=== PATIENT | male | born 1965 | race Caucasian/White ===

== ENCOUNTER → 2020-08-02 | Outpatient (CLI) | payer OTHER ==
[~2020-08-02] MED LIST: HYDACE5 PO; NAPR550 PO
== END | disposition home or self-care (01) ==
LOC: LAB EV 08:44 → LAB SHORT 08:44
DX: M10.9 Gout, unspecified (principal)
CPT/HCPCS: 84550

== ENCOUNTER 2022-06-06 00:43 | Day surgery (SDC) | payer OTHER, BC ==
[~2022-06-06 00:43] MED LIST changes: +ATENOLOL25 MG PO; +CUBICIN RF500 M1 IV
== END 2022-06-06 15:23 | disposition home or self-care (01) ==
LOC: ATC 00:43
DX: M86.9 Osteomyelitis, unspecified (principal)
CPT/HCPCS: J0878

== ENCOUNTER 2022-06-07 02:03 | Day surgery (SDC) | payer OTHER, BC | END 2022-06-07 11:37 | disposition home or self-care (01) | LOC: ATC 02:03 | DX: M86.9 Osteomyelitis, unspecified (principal) | CPT/HCPCS: J0878 ==

== ENCOUNTER 2022-06-08 00:12 | Day surgery (SDC) | payer OTHER, BC ==
[2022-06-08 14:58] LABS: BASOPHILS ABSOLUTE AUTO 0.07 K/mm3 (0.00-0.23); BASOPHILS PERCENT AUTO 1 % (0-2); EOSINOPHILS ABSOLUTE AUTO 0.34 K/mm3 (0.00-0.68); EOSINOPHILS PERCENT AUTO 4 % (0-6); Hematocrit 42.4 % (37.0-53.0); Hemoglobin 13.6 g/dL (13.5-17.5); IMMATURE GRAN ABSOLUTE AUTO 0.03 K/mm3 (0.00-0.10); IMMATURE GRAN PERCENT AUTO 0 % (0-1); LYMPHOCYTES ABSOLUTE AUTO 3.08 K/mm3 (0.84-5.20); LYMPHOCYTES PERCENT AUTO 34 % (21-46); MONOCYTES ABSOLUTE AUTO 0.73 K/mm3 (0.16-1.47); MONOCYTES PERCENT AUTO 8 % (4-13); Mean Corpuscular HGB 28.2 pg (26.0-34.0); Mean Corpuscular HGB Conc 32.1 g/dL (31.5-36.5); Mean Corpuscular Volume 88 fL (80-100); Mean Platelet Volume 10.2 fL (9.1-12.4); NEUTROPHILS ABSOLUTE AUTO 4.85 K/mm3 (1.96-9.15); NEUTROPHILS PERCENT AUTO 53 % (41-73); Platelet Count 432 K/mm3 (150-400); RDW Coefficient Variation 16.5 % (11.7-14.2); RDW Standard Deviation 53.7 fL (35.1-46.3); Red Blood Cell Count 4.82 M/mm3 (4.30-5.90)
[2022-06-08 15:37] LABS: C-REACTIVE PROTEIN, EXT RANGE 0.572 mg/dL (0.000-0.300)
[2022-06-08 15:39] LABS: Albumin, Blood 3.5 g/dL (3.4-5.0); Albumin/Globulin Ratio 0.8 (0.8-1.8); Bilirubin, Total 0.3 mg/dL (0.1-1.0); Bun/Creatinine Ratio 39.1 (12.0-20.0); Calcium, Blood 9.2 mg/dL (8.5-10.1); Creatinine, Blood 0.56 mg/dL (0.60-1.20); Globulin, Blood 4.6 g/dL (2.2-4.0); Potassium, Blood 4.2 mmol/L (3.5-5.5); Total Protein, Blood 8.1 g/dL (6.4-8.2)
== END 2022-06-08 15:15 | disposition home or self-care (01) ==
LOC: ATC 00:12
PROVIDERS: Internal Medicine
DX: M86.9 Osteomyelitis, unspecified (principal)
CPT/HCPCS: 80053; 82550; 85025; 86140; J0878

== ENCOUNTER 2022-06-09 01:13 | Day surgery (SDC) | payer OTHER, BC | END 2022-06-09 13:30 | disposition home or self-care (01) | LOC: ATC 01:13 | DX: M86.9 Osteomyelitis, unspecified (principal) | CPT/HCPCS: J0878 ==

== ENCOUNTER 2022-06-10 01:05 | Day surgery (SDC) | payer OTHER, BC | END 2022-06-10 13:30 | disposition home or self-care (01) | LOC: ATC 01:05 | DX: M86.9 Osteomyelitis, unspecified (principal) | CPT/HCPCS: J0878 ==

== ENCOUNTER 2022-06-11 01:10 | Day surgery (SDC) | payer OTHER, BC | END 2022-06-11 12:17 | disposition home or self-care (01) | LOC: ATC 01:10 | DX: M86.8X6 Other osteomyelitis, lower leg (principal) | CPT/HCPCS: 96365; J0878 ==

== ENCOUNTER 2022-07-26 02:17 | Day surgery (SDC) | payer BC | END 2022-07-26 22:43 | disposition home or self-care (01) | LOC: WOUND 02:17 | DX: T81.89XA Other complications of procedures, not elsewhere classified, initial encounter (principal); I25.10 Atherosclerotic heart disease of native coronary artery without angina pectoris; E11.21 Type 2 diabetes mellitus with diabetic nephropathy; I50.22 Chronic systolic (congestive) heart failure; E11.628 Type 2 diabetes mellitus with other skin complications | CPT/HCPCS: A9270; G0463 ==

== ENCOUNTER 2022-07-30 03:11 | Day surgery (SDC) | payer BC | END 2022-07-30 23:07 | disposition home or self-care (01) | LOC: WOUND 03:11 | DX: E11.628 Type 2 diabetes mellitus with other skin complications (principal); T81.89XD Other complications of procedures, not elsewhere classified, subsequent encounter; E11.21 Type 2 diabetes mellitus with diabetic nephropathy; I50.22 Chronic systolic (congestive) heart failure | CPT/HCPCS: G0463 ==

== ENCOUNTER 2022-08-01 05:24 | Day surgery (SDC) | payer BC | END 2022-08-01 23:03 | disposition home or self-care (01) | LOC: WOUND 05:24 | DX: T81.89XA Other complications of procedures, not elsewhere classified, initial encounter (principal); E11.622 Type 2 diabetes mellitus with other skin ulcer; L97.822 Non-pressure chronic ulcer of other part of left lower leg with fat layer exposed; E11.21 Type 2 diabetes mellitus with diabetic nephropathy; I50.22 Chronic systolic (congestive) heart failure; E11.628 Type 2 diabetes mellitus with other skin complications | CPT/HCPCS: G0463 ==

== ENCOUNTER 2022-08-03 01:59 | Day surgery (SDC) | payer BC | END 2022-08-03 23:48 | disposition home or self-care (01) | LOC: WOUND 01:59 | DX: E11.622 Type 2 diabetes mellitus with other skin ulcer (principal); L97.822 Non-pressure chronic ulcer of other part of left lower leg with fat layer exposed; E11.21 Type 2 diabetes mellitus with diabetic nephropathy; E11.628 Type 2 diabetes mellitus with other skin complications; I50.22 Chronic systolic (congestive) heart failure | CPT/HCPCS: G0463 ==

== ENCOUNTER 2022-08-06 08:54 | Day surgery (SDC) | payer BC | END 2022-08-06 22:58 | disposition home or self-care (01) | LOC: WOUND 08:54 | DX: E11.622 Type 2 diabetes mellitus with other skin ulcer (principal); L97.822 Non-pressure chronic ulcer of other part of left lower leg with fat layer exposed; E11.21 Type 2 diabetes mellitus with diabetic nephropathy | CPT/HCPCS: G0463 ==

== ENCOUNTER 2022-08-08 01:32 | Day surgery (SDC) | payer BC | END 2022-08-08 22:53 | disposition home or self-care (01) | LOC: WOUND 01:32 | DX: E11.622 Type 2 diabetes mellitus with other skin ulcer (principal); E11.21 Type 2 diabetes mellitus with diabetic nephropathy; L97.822 Non-pressure chronic ulcer of other part of left lower leg with fat layer exposed; I50.22 Chronic systolic (congestive) heart failure; I25.10 Atherosclerotic heart disease of native coronary artery without angina pectoris | CPT/HCPCS: A9270; G0463 ==

== ENCOUNTER 2022-08-10 01:48 | Day surgery (SDC) | payer BC | END 2022-08-10 22:46 | disposition home or self-care (01) | LOC: WOUND 01:48 | DX: E11.622 Type 2 diabetes mellitus with other skin ulcer (principal); L97.822 Non-pressure chronic ulcer of other part of left lower leg with fat layer exposed; T81.89XA Other complications of procedures, not elsewhere classified, initial encounter; E11.21 Type 2 diabetes mellitus with diabetic nephropathy; I50.22 Chronic systolic (congestive) heart failure | CPT/HCPCS: G0463 ==

== ENCOUNTER 2022-08-13 00:12 | Day surgery (SDC) | payer BC | END 2022-08-13 22:58 | disposition home or self-care (01) | LOC: WOUND 00:12 | DX: E11.622 Type 2 diabetes mellitus with other skin ulcer (principal); E11.628 Type 2 diabetes mellitus with other skin complications; L97.822 Non-pressure chronic ulcer of other part of left lower leg with fat layer exposed; T81.89XD Other complications of procedures, not elsewhere classified, subsequent encounter; E11.21 Type 2 diabetes mellitus with diabetic nephropathy; I50.22 Chronic systolic (congestive) heart failure | CPT/HCPCS: G0463 ==

== ENCOUNTER 2022-08-15 01:00 | Day surgery (SDC) | payer BC | END 2022-08-15 23:36 | disposition home or self-care (01) | LOC: WOUND 01:00 | DX: T81.32XA Disruption of internal operation (surgical) wound, not elsewhere classified, initial encounter (principal); E11.622 Type 2 diabetes mellitus with other skin ulcer; L97.822 Non-pressure chronic ulcer of other part of left lower leg with fat layer exposed; T81.89XA Other complications of procedures, not elsewhere classified, initial encounter; E11.21 Type 2 diabetes mellitus with diabetic nephropathy; I50.22 Chronic systolic (congestive) heart failure | CPT/HCPCS: 87070; 87075; 87077; 87186; 87205; G0463 ==

== ENCOUNTER 2022-08-20 00:05 | Day surgery (SDC) | payer BC | END 2022-08-20 23:13 | disposition home or self-care (01) | LOC: WOUND 00:05 | DX: T81.89XA Other complications of procedures, not elsewhere classified, initial encounter (principal); L97.822 Non-pressure chronic ulcer of other part of left lower leg with fat layer exposed; E11.628 Type 2 diabetes mellitus with other skin complications | CPT/HCPCS: G0463 ==

== ENCOUNTER 2022-08-22 00:35 | Day surgery (SDC) | payer BC | END 2022-08-22 22:52 | disposition home or self-care (01) | LOC: WOUND 00:35 | DX: E11.622 Type 2 diabetes mellitus with other skin ulcer (principal); L97.822 Non-pressure chronic ulcer of other part of left lower leg with fat layer exposed; T81.89XA Other complications of procedures, not elsewhere classified, initial encounter; E11.21 Type 2 diabetes mellitus with diabetic nephropathy; I50.22 Chronic systolic (congestive) heart failure | CPT/HCPCS: A9270; G0463 ==

== ENCOUNTER 2022-08-24 01:09 | Day surgery (SDC) | payer BC | END 2022-08-25 22:45 | disposition home or self-care (01) | LOC: WOUND 01:09 | DX: E11.622 Type 2 diabetes mellitus with other skin ulcer (principal); L97.822 Non-pressure chronic ulcer of other part of left lower leg with fat layer exposed; E11.21 Type 2 diabetes mellitus with diabetic nephropathy; I50.22 Chronic systolic (congestive) heart failure | CPT/HCPCS: G0463 ==

== ENCOUNTER 2022-08-29 08:00 | Day surgery (SDC) | payer BC | END 2022-08-29 23:59 | disposition home or self-care (01) | LOC: WOUND 08:00 | DX: E11.622 Type 2 diabetes mellitus with other skin ulcer (principal); L97.822 Non-pressure chronic ulcer of other part of left lower leg with fat layer exposed; E11.21 Type 2 diabetes mellitus with diabetic nephropathy; I50.22 Chronic systolic (congestive) heart failure | CPT/HCPCS: G0463 ==

== ENCOUNTER 2022-08-31 00:08 | Day surgery (SDC) | payer BC | END 2022-08-31 23:16 | disposition home or self-care (01) | LOC: WOUND 00:08 | DX: T81.89XA Other complications of procedures, not elsewhere classified, initial encounter (principal); E11.622 Type 2 diabetes mellitus with other skin ulcer; L97.822 Non-pressure chronic ulcer of other part of left lower leg with fat layer exposed; E11.21 Type 2 diabetes mellitus with diabetic nephropathy; I50.22 Chronic systolic (congestive) heart failure; E11.628 Type 2 diabetes mellitus with other skin complications; I25.10 Atherosclerotic heart disease of native coronary artery without angina pectoris | CPT/HCPCS: A9270 ==

== ENCOUNTER 2022-09-05 00:32 | Day surgery (SDC) | payer BC | END 2022-09-05 23:29 | disposition home or self-care (01) | LOC: WOUND 00:32 | DX: E11.622 Type 2 diabetes mellitus with other skin ulcer (principal); L97.822 Non-pressure chronic ulcer of other part of left lower leg with fat layer exposed; E11.21 Type 2 diabetes mellitus with diabetic nephropathy; I50.22 Chronic systolic (congestive) heart failure; T81.89XD Other complications of procedures, not elsewhere classified, subsequent encounter; E11.628 Type 2 diabetes mellitus with other skin complications; I25.10 Atherosclerotic heart disease of native coronary artery without angina pectoris | CPT/HCPCS: A9270; G0463 ==

== ENCOUNTER 2022-09-19 02:36 | Day surgery (SDC) | payer BC | END 2022-09-19 23:17 | disposition home or self-care (01) | LOC: WOUND 02:36 | DX: T81.89XA Other complications of procedures, not elsewhere classified, initial encounter (principal); E11.622 Type 2 diabetes mellitus with other skin ulcer; L97.822 Non-pressure chronic ulcer of other part of left lower leg with fat layer exposed; T81.89XD Other complications of procedures, not elsewhere classified, subsequent encounter; E11.21 Type 2 diabetes mellitus with diabetic nephropathy; I50.22 Chronic systolic (congestive) heart failure | CPT/HCPCS: A9270; G0463 ==

== ENCOUNTER 2022-09-26 02:24 | Day surgery (SDC) | payer BC | END 2022-09-26 22:38 | disposition home or self-care (01) | LOC: WOUND 02:24 | DX: T81.89XA Other complications of procedures, not elsewhere classified, initial encounter (principal); E11.622 Type 2 diabetes mellitus with other skin ulcer; L97.822 Non-pressure chronic ulcer of other part of left lower leg with fat layer exposed; E11.21 Type 2 diabetes mellitus with diabetic nephropathy; I50.22 Chronic systolic (congestive) heart failure | CPT/HCPCS: G0463 ==

== ENCOUNTER 2022-10-03 00:45 | Day surgery (SDC) | payer BC | END 2022-10-03 23:03 | disposition home or self-care (01) | LOC: WOUND 00:45 | DX: E11.622 Type 2 diabetes mellitus with other skin ulcer (principal); L97.822 Non-pressure chronic ulcer of other part of left lower leg with fat layer exposed; T81.89XD Other complications of procedures, not elsewhere classified, subsequent encounter; Y83.8 Other surgical procedures as the cause of abnormal reaction of the patient, or of later complication, without mention of misadventure at the time of the procedure; E11.21 Type 2 diabetes mellitus with diabetic nephropathy; E11.628 Type 2 diabetes mellitus with other skin complications; I50.22 Chronic systolic (congestive) heart failure | CPT/HCPCS: G0463 ==

== ENCOUNTER 2022-10-22 01:25 | Day surgery (SDC) | payer BC | END 2022-10-22 22:55 | disposition home or self-care (01) | LOC: WOUND 01:25 | DX: T81.30XA Disruption of wound, unspecified, initial encounter (principal); E11.622 Type 2 diabetes mellitus with other skin ulcer; L97.822 Non-pressure chronic ulcer of other part of left lower leg with fat layer exposed; E11.21 Type 2 diabetes mellitus with diabetic nephropathy; I50.21 Acute systolic (congestive) heart failure | CPT/HCPCS: A9270 ==

== ENCOUNTER 2022-10-29 00:45 | Day surgery (SDC) | payer BC | END 2022-10-29 22:38 | disposition home or self-care (01) | LOC: WOUND 00:45 | DX: T81.32XA Disruption of internal operation (surgical) wound, not elsewhere classified, initial encounter (principal); E11.622 Type 2 diabetes mellitus with other skin ulcer; L97.822 Non-pressure chronic ulcer of other part of left lower leg with fat layer exposed; E11.21 Type 2 diabetes mellitus with diabetic nephropathy; I50.22 Chronic systolic (congestive) heart failure | CPT/HCPCS: A9270 ==

== ENCOUNTER 2022-11-05 00:12 | Day surgery (SDC) | payer BC | END 2022-11-05 22:55 | disposition home or self-care (01) | LOC: WOUND 00:12 | DX: E11.622 Type 2 diabetes mellitus with other skin ulcer (principal); L97.822 Non-pressure chronic ulcer of other part of left lower leg with fat layer exposed; L97.829 Non-pressure chronic ulcer of other part of left lower leg with unspecified severity; T81.89XD Other complications of procedures, not elsewhere classified, subsequent encounter; E11.21 Type 2 diabetes mellitus with diabetic nephropathy; I50.22 Chronic systolic (congestive) heart failure; E11.628 Type 2 diabetes mellitus with other skin complications; I25.10 Atherosclerotic heart disease of native coronary artery without angina pectoris | CPT/HCPCS: G0463 ==

== ENCOUNTER → 2022-11-29 | Outpatient (CLI) | payer BC ==
[2022-11-29 19:57] LABS: BASOPHILS ABSOLUTE AUTO 0.05 K/mm3 (0.00-0.23); BASOPHILS PERCENT AUTO 1 % (0-2); EOSINOPHILS PERCENT AUTO 4 % (0-6); Hematocrit 37.2 % (37.0-53.0); Hemoglobin 12.1 g/dL (13.5-17.5); IMMATURE GRAN ABSOLUTE AUTO 0.03 K/mm3 (0.00-0.10); IMMATURE GRAN PERCENT AUTO 0 % (0-1); LYMPHOCYTES ABSOLUTE AUTO 3.24 K/mm3 (0.84-5.20); LYMPHOCYTES PERCENT AUTO 44 % (21-46); MONOCYTES PERCENT AUTO 10 % (4-13); Mean Corpuscular HGB 29.7 pg (26.0-34.0); Mean Corpuscular HGB Conc 32.5 g/dL (31.5-36.5); Mean Corpuscular Volume 91 fL (80-100); Mean Platelet Volume 10.5 fL (9.1-12.4); NEUTROPHILS ABSOLUTE AUTO 3.07 K/mm3 (1.96-9.15); NEUTROPHILS PERCENT AUTO 42 % (41-73); Platelet Count 361 K/mm3 (150-400); RDW Coefficient Variation 17.5 % (11.7-14.2); RDW Standard Deviation 58.8 fL (35.1-46.3); Red Blood Cell Count 4.07 M/mm3 (4.30-5.90); White Blood Cell Count 7.39 K/mm3 (4.00-11.30)
[2022-11-29 20:09] LABS: Alanine Aminotransfer (ALT/SGP 19 U/L (12-78); Albumin, Blood 3.1 g/dL (3.4-5.0); Albumin/Globulin Ratio 0.9 (0.8-1.8); Alk Phos 102 U/L (50-136); Anion Gap 6 mmol/L (6-16); Aspartate Aminotrans (AST/SGOT 18 U/L (12-37); Bilirubin, Total 0.2 mg/dL (0.1-1.0); Blood Urea Nitrogen 18 mg/dL (8-24); Bun/Creatinine Ratio 26.7 (12.0-20.0); C-REACTIVE PROTEIN, EXT RANGE <0.290 mg/dL (0.000-0.300); CO2, Blood 27 mmol/L (21-32); Calcium, Blood 8.6 mg/dL (8.5-10.1); Chloride, Blood 109 mmol/L (98-108); Creatinine, Blood 0.67 mg/dL (0.60-1.20); Globulin, Blood 3.4 g/dL (2.2-4.0); Glomerular Filtration Rate 108 (60-); Glucose, Blood 115 mg/dL (70-99); Potassium, Blood 4.2 mmol/L (3.5-5.5); Sodium, Blood 142 mmol/L (136-145); Total Protein, Blood 6.5 g/dL (6.4-8.2)
== END | disposition home or self-care (01) ==
LOC: LAB 19:52 → LAB SHORT 19:52
PROVIDERS: Internal Medicine Infectious Disease
DX: M86.662 Other chronic osteomyelitis, left tibia and fibula (principal)
CPT/HCPCS: 80053; 85025; 85651; 86140

== ENCOUNTER → 2022-12-03 | Outpatient (CLI) | payer BC ==
[2022-12-03 21:46] LABS: Hematocrit 42.7 % (37.0-53.0); Hemoglobin 13.4 g/dL (13.5-17.5); Mean Corpuscular HGB 29.3 pg (26.0-34.0); Mean Corpuscular HGB Conc 31.4 g/dL (31.5-36.5); Mean Corpuscular Volume 93 fL (80-100); Mean Platelet Volume 10.9 fL (9.1-12.4); Platelet Count 311 K/mm3 (150-400); RDW Coefficient Variation 18.2 % (11.7-14.2); RDW Standard Deviation 62.4 fL (35.1-46.3); Red Blood Cell Count 4.57 M/mm3 (4.30-5.90); White Blood Cell Count 9.21 K/mm3 (4.00-11.30)
[2022-12-03 21:52] LABS: Alanine Aminotransfer (ALT/SGP 24 U/L (12-78); Albumin, Blood 3.7 g/dL (3.4-5.0); Albumin/Globulin Ratio 0.9 (0.8-1.8); Alk Phos 121 U/L (50-136); Anion Gap 7 mmol/L (6-16); Aspartate Aminotrans (AST/SGOT 20 U/L (12-37); Bilirubin, Total 0.2 mg/dL (0.1-1.0); Blood Urea Nitrogen 23 mg/dL (8-24); Bun/Creatinine Ratio 31.9 (12.0-20.0); C-REACTIVE PROTEIN, EXT RANGE <0.290 mg/dL (0.000-0.300); CO2, Blood 27 mmol/L (21-32); Chloride, Blood 106 mmol/L (98-108); Creatinine, Blood 0.72 mg/dL (0.60-1.20); Globulin, Blood 3.9 g/dL (2.2-4.0); Glomerular Filtration Rate 106 (60-); Glucose, Blood 96 mg/dL (70-99); Potassium, Blood 4.4 mmol/L (3.5-5.5); Sodium, Blood 140 mmol/L (136-145); Total Protein, Blood 7.6 g/dL (6.4-8.2)
== END | disposition home or self-care (01) ==
LOC: LAB SHORT 21:27 → LAB 21:27
PROVIDERS: Internal Medicine Infectious Disease
DX: M86.662 Other chronic osteomyelitis, left tibia and fibula (principal)
CPT/HCPCS: 80053; 85027; 85651; 86140

== ENCOUNTER 2022-12-11 02:30 | Day surgery (SDC) | payer BC ==
[2022-12-11 12:28] VITALS: BP 121/83
[2022-12-11 12:55] LABS: BASOPHILS ABSOLUTE AUTO 0.05 K/mm3 (0.00-0.23); BASOPHILS PERCENT AUTO 1 % (0-2); EOSINOPHILS ABSOLUTE AUTO 0.37 K/mm3 (0.00-0.68); EOSINOPHILS PERCENT AUTO 5 % (0-6); Hematocrit 43.1 % (37.0-53.0); Hemoglobin 14.3 g/dL (13.5-17.5); IMMATURE GRAN ABSOLUTE AUTO 0.02 K/mm3 (0.00-0.10); IMMATURE GRAN PERCENT AUTO 0 % (0-1); LYMPHOCYTES ABSOLUTE AUTO 3.08 K/mm3 (0.84-5.20); LYMPHOCYTES PERCENT AUTO 43 % (21-46); MONOCYTES ABSOLUTE AUTO 0.68 K/mm3 (0.16-1.47); MONOCYTES PERCENT AUTO 10 % (4-13); Mean Corpuscular HGB 30.2 pg (26.0-34.0); Mean Corpuscular HGB Conc 33.2 g/dL (31.5-36.5); Mean Corpuscular Volume 91 fL (80-100); Mean Platelet Volume 10.1 fL (9.1-12.4); NEUTROPHILS PERCENT AUTO 41 % (41-73); Platelet Count 363 K/mm3 (150-400); RDW Coefficient Variation 16.9 % (11.7-14.2); Red Blood Cell Count 4.73 M/mm3 (4.30-5.90)
[2022-12-11 12:58] LABS: Alanine Aminotransfer (ALT/SGP 22 U/L (12-78); Albumin, Blood 3.5 g/dL (3.4-5.0); Albumin/Globulin Ratio 0.8 (0.8-1.8); Alk Phos 113 U/L (50-136); Anion Gap 6 mmol/L (6-16); Aspartate Aminotrans (AST/SGOT 33 U/L (12-37); Bilirubin, Total 0.3 mg/dL (0.1-1.0); Blood Urea Nitrogen 24 mg/dL (8-24); Bun/Creatinine Ratio 36.8 (12.0-20.0); C-REACTIVE PROTEIN, EXT RANGE <0.290 mg/dL (0.000-0.300); CO2, Blood 26 mmol/L (21-32); Calcium, Blood 8.9 mg/dL (8.5-10.1); Chloride, Blood 108 mmol/L (98-108); Creatinine, Blood 0.65 mg/dL (0.60-1.20); Globulin, Blood 4.2 g/dL (2.2-4.0); Glomerular Filtration Rate 109 (60-); Glucose, Blood 102 mg/dL (70-99); Potassium, Blood 4.6 mmol/L (3.5-5.5); Sodium, Blood 140 mmol/L (136-145); Total Protein, Blood 7.7 g/dL (6.4-8.2)
[2022-12-11] MEDS ORDERED: ASPIR 8181 MG PO (13:01)
[2022-12-11] MEDS ORDERED: ENOX40I SC (13:02)
[2022-12-11] MEDS ORDERED: Aspirin325 MG PO (13:02)
[2022-12-11] MEDS ORDERED: OXYC5 PO (13:03)
[2022-12-11] MEDS ORDERED: CALCIUM-FOLIC1 EACH (14:04)
[2022-12-11] MEDS ORDERED: ONE DAILY MUL400 MCG PO (14:05)
[2022-12-11] MEDS ORDERED: CEFAZOLIN2 GM/50 M3 IV (15:24)
== END 2022-12-11 12:30 | disposition home or self-care (01) ==
LOC: ATC 02:30
PROVIDERS: Internal Medicine Infectious Disease
DX: E11.69 Type 2 diabetes mellitus with other specified complication (principal); M86.662 Other chronic osteomyelitis, left tibia and fibula; B95.61 Methicillin susceptible Staphylococcus aureus infection as the cause of diseases classified elsewhere; E11.40 Type 2 diabetes mellitus with diabetic neuropathy, unspecified; G47.33 Obstructive sleep apnea (adult) (pediatric); I48.0 Paroxysmal atrial fibrillation
CPT/HCPCS: 36592; 80053; 85025; 85651; 86140

== ENCOUNTER 2022-12-18 03:12 | Day surgery (SDC) | payer BC ==
[~2022-12-18 03:12] MED LIST changes: +ASPIR 8181 MG PO; +Aspirin325 MG PO; +CALCIUM-FOLIC1 EACH; +CEFAZOLIN2 GM/50 M3 IV; +ENOX40I SC; +ONE DAILY MUL400 MCG PO; +OXYC5 PO
[2022-12-18 11:15] VITALS: BP 123/64
[2022-12-18 12:37] LABS: BASOPHILS ABSOLUTE AUTO 0.08 K/mm3 (0.00-0.23); BASOPHILS PERCENT AUTO 1 % (0-2); EOSINOPHILS ABSOLUTE AUTO 0.33 K/mm3 (0.00-0.68); EOSINOPHILS PERCENT AUTO 4 % (0-6); Hematocrit 43.1 % (37.0-53.0); Hemoglobin 14.4 g/dL (13.5-17.5); IMMATURE GRAN ABSOLUTE AUTO 0.02 K/mm3 (0.00-0.10); IMMATURE GRAN PERCENT AUTO 0 % (0-1); LYMPHOCYTES PERCENT AUTO 39 % (21-46); MONOCYTES ABSOLUTE AUTO 0.79 K/mm3 (0.16-1.47); MONOCYTES PERCENT AUTO 9 % (4-13); Mean Corpuscular HGB 30.5 pg (26.0-34.0); Mean Corpuscular HGB Conc 33.4 g/dL (31.5-36.5); Mean Corpuscular Volume 91 fL (80-100); Mean Platelet Volume 10.9 fL (9.1-12.4); NEUTROPHILS ABSOLUTE AUTO 4.16 K/mm3 (1.96-9.15); NEUTROPHILS PERCENT AUTO 47 % (41-73); Platelet Count 276 K/mm3 (150-400); RDW Coefficient Variation 16.6 % (11.7-14.2); RDW Standard Deviation 56.3 fL (35.1-46.3); Red Blood Cell Count 4.72 M/mm3 (4.30-5.90); White Blood Cell Count 8.88 K/mm3 (4.00-11.30)
[2022-12-18 13:03] LABS: C-REACTIVE PROTEIN, EXT RANGE <0.290 mg/dL (0.000-0.300)
[2022-12-18 13:04] LABS: Alanine Aminotransfer (ALT/SGP 18 U/L (12-78); Albumin, Blood 3.6 g/dL (3.4-5.0); Albumin/Globulin Ratio 0.9 (0.8-1.8); Alk Phos 97 U/L (50-136); Anion Gap 7 mmol/L (6-16); Aspartate Aminotrans (AST/SGOT 22 U/L (12-37); Bilirubin, Total 0.4 mg/dL (0.1-1.0); Blood Urea Nitrogen 21 mg/dL (8-24); Bun/Creatinine Ratio 27.9 (12.0-20.0); CO2, Blood 26 mmol/L (21-32); Chloride, Blood 106 mmol/L (98-108); Creatinine, Blood 0.75 mg/dL (0.60-1.20); Glomerular Filtration Rate 105 (60-); Glucose, Blood 100 mg/dL (70-99); Potassium, Blood 3.9 mmol/L (3.5-5.5); Sodium, Blood 139 mmol/L (136-145); Total Protein, Blood 7.6 g/dL (6.4-8.2)
== END 2022-12-18 11:20 | disposition home or self-care (01) ==
LOC: ATC 03:12
PROVIDERS: Internal Medicine Infectious Disease
DX: M86.662 Other chronic osteomyelitis, left tibia and fibula (principal)
CPT/HCPCS: 80053; 85025; 85651; 86140

== ENCOUNTER → 2024-01-30 | Outpatient (CLI) | payer OTHER | LOC: LAB SHORT 18:23 → LAB 18:23 | DX: R82.90 Unspecified abnormal findings in urine (principal) | CPT/HCPCS: 87086 ==

== ENCOUNTER 2024-09-21 13:52 | Emergency (ER) | payer MEDICARE, OTHER ==
[~2024-09-21] VITALS: Ht 195.6 cm; Wt 122.5 kg
[2024-09-21 15:20] LABS: BASOPHILS ABSOLUTE AUTO 0.04 K/mm3 (0.00-0.23); BASOPHILS PERCENT AUTO 0 % (0-2); EOSINOPHILS ABSOLUTE AUTO 0.01 K/mm3 (0.00-0.68); EOSINOPHILS PERCENT AUTO 0 % (0-6); Hematocrit 44.8 % (37.0-53.0); Hemoglobin 15.2 g/dL (13.5-17.5); IMMATURE GRAN ABSOLUTE AUTO 0.03 K/mm3 (0.00-0.10); IMMATURE GRAN PERCENT AUTO 0 % (0-1); LYMPHOCYTES ABSOLUTE AUTO 1.29 K/mm3 (0.84-5.20); LYMPHOCYTES PERCENT AUTO 14 % (21-46); MONOCYTES ABSOLUTE AUTO 0.32 K/mm3 (0.16-1.47); MONOCYTES PERCENT AUTO 3 % (4-13); Mean Corpuscular HGB 31.1 pg (26.0-34.0); Mean Corpuscular HGB Conc 33.9 g/dL (31.5-36.5); Mean Corpuscular Volume 92 fL (80-100); Mean Platelet Volume 9.5 fL (9.1-12.4); NEUTROPHILS ABSOLUTE AUTO 7.63 K/mm3 (1.96-9.15); NEUTROPHILS PERCENT AUTO 82 % (41-73); Platelet Count 288 K/mm3 (150-400); RDW Coefficient Variation 14.4 % (11.7-14.2); RDW Standard Deviation 47.9 fL (35.1-46.3); Red Blood Cell Count 4.89 M/mm3 (4.30-5.90); White Blood Cell Count 9.32 K/mm3 (4.00-11.30)
[2024-09-21 15:59] LABS: Albumin, Blood 3.5 g/dL (3.4-5.0); Albumin/Globulin Ratio 0.8 (0.8-1.8); Bilirubin, Total 0.7 mg/dL (0.1-1.0); Bun/Creatinine Ratio 26.5 (12.0-20.0); Calcium, Blood 8.9 mg/dL (8.5-10.1); Creatinine, Blood 0.64 mg/dL (0.60-1.20); Globulin, Blood 4.2 g/dL (2.2-4.0); Potassium, Blood 4.3 mmol/L (3.5-5.5); Total Protein, Blood 7.7 g/dL (6.4-8.2)
[2024-09-21 16:15] VITALS: BP 136/87
== END 2024-09-21 16:31 | disposition home or self-care (01) ==
LOC: ER 13:52
PROVIDERS: Student in an Organized Health Care Education/Training Program
DX: T81.89XA Other complications of procedures, not elsewhere classified, initial encounter (principal); Z89.512 Acquired absence of left leg below knee; Z79.82 Long term (current) use of aspirin; Z79.899 Other long term (current) drug therapy
CPT/HCPCS: 80053; 83605; 85025; 99283